=== PATIENT | female | born 1960 | race Caucasian/White ===

== ENCOUNTER 2020-06-28 12:56 | Outpatient (CLI) | payer MEDICARE, OTHER ==
[2020-06-29 03:09] LABS: SARS-CoV-2 PCR by NAA Not Detected (NotDetected)
== END 2020-06-28 12:57 | disposition home or self-care (01) ==
LOC: LABBT 12:56
PROVIDERS: ATTEND Student in an Organized Health Care Education/Training Program
DX: Z01.812 Encounter for preprocedural laboratory examination (principal); E04.1 Nontoxic single thyroid nodule; Z20.822 Contact with and (suspected) exposure to COVID-19
CPT/HCPCS: U0003; U0005; 87635

== ENCOUNTER → 2020-07-01 | Day surgery (SDC) | payer MEDICARE, OTHER ==
[2020-06-30 10:17] VITALS: BMI 23.0
[2020-07-01 13:20] VITALS: BP 143/74; TEMP 98.1
== END ==
LOC: ULT 12:37
PROVIDERS: ATTEND Student in an Organized Health Care Education/Training Program
PROC: 0G9K3ZX Drainage of Thyroid Gland, Percutaneous Approach, Diagnostic (ICD-10-PCS; principal; 2020-07-01)
DX: E04.2 Nontoxic multinodular goiter (principal); E89.0 Postprocedural hypothyroidism; E11.9 Type 2 diabetes mellitus without complications; E78.5 Hyperlipidemia, unspecified; F41.9 Anxiety disorder, unspecified; I10 Essential (primary) hypertension; F17.210 Nicotine dependence, cigarettes, uncomplicated; G47.30 Sleep apnea, unspecified; M79.7 Fibromyalgia; Z79.899 Other long term (current) drug therapy
CPT/HCPCS: 60100; 76942; 88173

== ENCOUNTER 2022-12-14 13:32 | Outpatient (CLI) | payer OTHER | END 2022-12-14 13:33 | disposition home or self-care (01) | LOC: BICMAMMO 13:32 | PROVIDERS: ATTEND Physician Assistant | DX: Z12.31 Encounter for screening mammogram for malignant neoplasm of breast (principal); Z13.820 Encounter for screening for osteoporosis; M85.852 Other specified disorders of bone density and structure, left thigh; Z78.0 Asymptomatic menopausal state | CPT/HCPCS: 77063; 77067; 77080 ==